=== PATIENT | female | born 1990 | race Caucasian/White ===

== ENCOUNTER 2018-11-07 08:42 | Day surgery (SDC) | payer OTHER ==
[~2018-11-07 08:42] MED LIST: CEFAZOLIN 2 GM/50 ML (PMX) 50 ML IVPB; SEVOFLURANE 15 MIN
[2018-11-07] MEDS: SOD CHLORIDE 0.9% 1,000 ML IV (11:32)
[2018-11-07] MEDS ORDERED: LIDOCAINE 2% (SDV) 5 ML INJ (13:35)
[2018-11-07] MEDS ORDERED: ONDANSETRON 4 MG INJ (13:35)
[2018-11-07] MEDS ORDERED: METOCLOPRAMIDE 10 MG INJ (13:35)
[2018-11-07] MEDS ORDERED: CEFAZOLIN 1 GM INJ (13:35)
[2018-11-07] MEDS ORDERED: PROPOFOL 20 ML (13:35)
[2018-11-07] MEDS ORDERED: DIPHENHYDRAMINE 50 MG INJ IV (14:30)
[2018-11-07] MEDS ORDERED: OXYCODONE/ACETAMINOPHEN (5/325) TAB PO ×2 (14:30)
[2018-11-07] MEDS ORDERED: HYDROCODONE/APAP (5/325) TAB PO (14:30)
[2018-11-07] MEDS ORDERED: MEPERIDINE 25 MG INJ IV (14:30)
[2018-11-07] MEDS ORDERED: HYDROmorphONE 1 MG/5 ML IV SYRINGE IV ×3 (14:30)
[2018-11-07] MEDS ORDERED: FENTAnyl 50 MCG/ML VIAL IV ×2 (14:30)
[2018-11-07] MEDS ORDERED: METOCLOPRAMIDE 10 MG INJ IV (14:30)
[2018-11-07] MEDS ORDERED: ONDANSETRON 4 MG INJ IV (14:30)
[2018-11-07] MEDS ORDERED: MIDAZOLAM 1 MG/ML 2 ML INJ IV (14:30)
[2018-11-07] MEDS: BUPIVACAINE 0.25% (MPF) 30 ML INJ (14:37)
[2018-11-07] MEDS: FENTAnyl 50 MCG/ML VIAL IV ×2 (14:39→14:52)
== END 2018-11-07 16:30 | disposition home or self-care (01) ==
LOC: SDS 08:42
DX: D23.61 Other benign neoplasm of skin of right upper limb, including shoulder (principal); D23.5 Other benign neoplasm of skin of trunk
CPT/HCPCS: 14000; 84703; 88307